=== PATIENT | female | born 1950 | race Caucasian/White ===

== ENCOUNTER 2018-11-01 17:56 | Emergency (ER) | payer MEDICARE, OTHER ==
[~2018-11-01] VITALS: Ht 154.9 cm; Wt 117.9 kg
[~2018-11-01 17:56] MED LIST: ANALPRAM HC 2.530 GM TOP; ASPIRIN LOW-STR81 MG PO; AZOR 5-40 MG T1 EACH PO; CETIRIZINE HCL10 MG PO; CLINDAMYCIN HC150 MG PO; DIGOXIN125 MCG PO; ELIQUIS PO; ESCITALOPRAM OX20 MG PO; FAMOTIDINE40 MG PO; FENOFIBRATE160 MG PO; FENOFIBRATE54 MG PO; HYDROCHLOROTHIA25 MG PO; LEVOTHYROXINE112 MCG PO; LOSARTAN POTAS100 MG PO; METFORMIN HCL500 M1 PO; METOPROLOL TART25 MG PO; NEXIUM40 MG PO; NITROGLYCERIN0.4 MG SL; NO PO; OMEPRAZOLE40 MG PO; PRAVASTATIN SOD40 MG PO; TRICOR145 MG PO; ULTRAM 50MG50 MG PO; VASCULERA PO; VASCULERA630 MG PO; Z.0.BENAZEPRIL HCL20 PO; Z.0.LEVOTHYROXINE100; Z.0.LEXAPRO20 MG PO; Z.0.METOPROLOL TART5 PO; Z.0.SIMVASTATIN40 MG PO; Z.1.LEVOTHYROXINE100 PO; ZYRTEC10 MG PO
--- OUTSIDE RECORDS SUMMARY | 2018-11-01 18:01 | XMS REPORT ---
Author Author [facility] Address Unknown Phone Unavailable Care Team Providers Care Rn Field Name Role Phone Michelle LUNSFORD Unavailable Unavailable Problems This patient has no known problems. Allergies, Adverse Reactions, Alerts This patient has no known allergies or adverse reactions. Medications This patient has no known medications. Results Test Description Test Time Test Comments Text Results Atomic Results Result Comments KNEE RIGHT THREE VIEWS [place] [address] Patient Name: MAHI CUEVAS MR #: [id number] : 1950 Age/Sex: 67/F Req #: [id number] [facility] Physician: Ordered by: JEFFREY LUNSFORD MD Report #: [id number] Location: ER Room/Bed: Procedure: [id number] DX/KNEE RIGHT THREE VIEWS Exam Date: 09/10/17 Exam Time: 1500 REPORT STATUS: Signed PROCEDURE: X-RAY RIGHT KNEE, THREE OR MORE VIEWS COMPARISON: None. INDICATIONS: FALL FINDINGS: The bones are well- mineralized. There are no fractures, subluxations, lytic or blastic lesions. There is no evidence of a joint effusion. Mild degenerative changes in the medial and patellofemoral compartments. CONCLUSION: Mild degenerative changes in the right knee especially the medial compartment. No acute abnormalities. Dictated by: Nile Paul M.D. on 09/10/2017 at 15:27 Electronically approved by: Nile Paul M.D. on 09/10/2017 at 15:27 Dictated By: NILE PAUL MD 152 Transcribed By: MIGNON on 09/10/171526 COPY TO: JEFFREY LUNSFORD MD
--- OUTSIDE RECORDS SUMMARY | 2018-11-01 18:01 | XMS REPORT | Continuity of Care Document ---
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 05/28/2012 [facility] Medications Medication Details Route Status Patient Instructions Ordering Provider Order Date Source Allergies, Adverse Reactions, Alerts Substance Category Reaction Severity Reaction type Status Date Reported Comments Source Immunizations Immunization Date Given Site Status Last Updated Comments Source Results Order Name Results Value Reference Range Date Interpretation Comments Source Breast Limited Uni US Breast Limited Uni US LIMITED ULTRASOUND OF RIGHT BREAST: 11/27/2017 CLINICAL: Right Breast Asymmetry/R92.8 Other Abnormal And Inconclusive Findings On Diagnostic Imaging Of Breast. COMPARISON:Comparison is made to exams dated: 11/27/2017 mammogram, 11/06/2017 mammogram, 04/02/2016 mammogram, 08/28/2014 mammogram, 08/24/2013 mammogram, and 07/27/2013 mammogram - [facility]. TECHNIQUE: Color flow and real-time ultrasound of the right breast were performed on the areas of interest. FINDINGS: No abnormalities were seen sonographically in the right breast. A ridge of fibroglandular tissue is seen in the area of mammographic asymmetry. IMPRESSION: BENIGN RECOMMENDATION:There is no sonographic evidence of malignancy. A 1 year screening mammogram is recommended.(11/28/2018) This exam was interpreted at [id number] for Ricardo. Professional services are provided by the [facility]. Ron Winchester M.D., cm/taina:11/27/2017 15:34:13 General Contractor(s): Nayeli Wylie [facility] letter sent: BI-RADS 1/2 Ultrasound BI-RADS: 2 Benign 11/27/2017 - - Read by: Negro Rivera MD Dictated Date/time: 11/27/17 15:34 Electronically Signed by: Negro Rivera MD 11/27/17 15:34 FINAL REPORT [facility] Silva Breast Mammo Diag UNI incl CAD MA Breast Mammo Diag UNI incl CAD MA UNILATERAL RIGHT DIGITAL DIAGNOSTIC MAMMOGRAM WITH CAD: 11/27/2017 CLINICAL: Mammographic Abnormality/Mammographic Abnormality. Current study was evaluated with a Computer Aided Detection (CAD) system. COMPARISON:Comparison is made to exams dated: 11/06/2017 mammogram, 04/02/2016 mammogram, 08/28/2014 mammogram, 08/24/2013 mammogram, 07/27/2013 mammogram, and 06/25/2012 mammogram - [facility]. TECHNIQUE: Mammographic views were obtained using digital acquisition. Current study was also evaluated with a Computer Aided Detection (CAD) system. FINDINGS: There are scattered fibroglandular densities in right breast. There is an asymmetry in the right breast middle depth superior region seen on the mediolateral oblique view only 12.5 cm from the nipple. This finding becomes less prominent on spot images and may represent overlapping tissue. No other significant masses or calcifications are seen in the breast. IMPRESSION: INCOMPLETE: NEEDS ADDITIONAL IMAGING EVALUATION RECOMMENDATION:The asymmetry in the right breast is indeterminate. An ultrasound is recommended. This exam was interpreted at [id number] for GARLAND Silva. Professional services are provided by the [facility]. Ron Winchester M.D. cm/penrad:11/27/2017 14:27:35 General Contractor(s): Renee Santos RT(R)(M), [facility] Mammogram BI-RADS: 0 Indeterminate 11/27/2017 - - Read by: Negro Rivera MD Dictated Date/time: 11/27/17 14:27 Electronically Signed by: Negro Rivera MD 11/27/17 14:27 FINAL REPORT GARLAND Silva Digital Mammo Screening [place] MA Digital Mammo Screening [place] MA - DIGITAL MAMMO SCREENING [place] MA BILATERAL DIGITAL SCREENING MAMMOGRAM WITH CAD: 04/02/2016 CLINICAL: Routine. Current study was evaluated with a Computer Aided Detection (CAD) system. Comparison is made to exams dated: 08/28/2014 mammogram, 08/24/2013 mammogram, 07/27/2013 mammogram, 06/25/2012 mammogram, 06/22/2011 mammogram and 05/24/2011 mammogram - [facility]. There are scattered fibroglandular densities in both breasts. There are benign scattered calcifications in both breasts. No significant masses, calcifications, or other findings are seen in either breast. There has been no significant interval change. IMPRESSION: BENIGN There is no mammographic evidence of malignancy. A 1 year screening mammogram is recommended. Ron Winchester M.D. /penrad:04/03/2016 09:48:06 General Contractor: Deya Rader RT(R)(M), [facility] This exam was dictated and interpreted by [id number] for MATIAS Lee 15. letter sent: Normal exam Mammogram BI-RADS: 2 Benign 04/02/2016 - - Read by: Negro Rivera MD Dictated Date/time: 04/03/16 09:48 Electronically Signed by: Negro Rivera MD 04/03/16 09:48 [facility] Mammo Screening [place] MA Digital Mammo Screening [place] MA - DIGITAL MAMMO SCREENING [place] MA BILATERAL DIGITAL SCREENING MAMMOGRAM WITH CAD: 08/28/2014 CLINICAL: V76.10 Breast Screening, Unspecified. Current study was evaluated with a Computer Aided Detection (CAD) system. Comparison is made to exams dated: 11/04/2006 mammogram - [facility], 01/05/2009 mammogram - [facility], 03/02/2010 mammogram, 05/24/2011 mammogram and 07/27/2013 mammogram - [facility]. There are scattered fibroglandular densities in both breasts. No significant masses, calcifications, or other findings are seen in either breast. There has been no significant interval change. IMPRESSION: NEGATIVE There is no mammographic evidence of malignancy. A screening mammogram in one year is recommended. Dr. Jyothi Brown D.O. /penrad:08/30/2014 11:06:01 General Contractor: Jenifer Esqueda RT(R)(M), [facility] This exam was dictated and interpreted by [id number] for GARLAND Jefferson. letter sent: Normal exam Mammogram BI-RADS: 1 Negative 08/28/2014 - - Read by: Jyothi Brown DO Dictated Date/time: 08/30/14 11:06 Electronically Signed by: Jyothi Brown DO 08/30/14 11:06 FINAL REPORT GAR[facility] Silva Digital Mammo DX Uni MA Digital Mammo DX Uni MA - DIGITAL MAMMO DX UNI MA/L UNILATERAL LEFT DIGITAL DIAGNOSTIC MAMMOGRAM: 08/24/2013 CLINICAL: Mammographic Abnormality. Comparison is made to exams dated: 07/27/2013 mammogram, 06/25/2012 mammogram and 05/24/2011 mammogram - [facility]. There are scattered fibroglandular elements in the left breast that could obscure a lesion on mammography. Additional imaging was obtained. Focal area in question in the left breast in prior mammography is not reproduced and presumably represents superimposed breast tissue. No significant masses, calcifications, or other findings are seen in the breast. IMPRESSION: NEGATIVE There is no mammographic evidence of malignancy. Return to annual mammogram screening schedule is recommended. SUMMARY: I notified the patient of the results and their significance at the completion of today's examination. Dr. Jyothi Brown D.O. ht/penrad:08/24/2013 14:11:41 General Contractor: Gris BARTHOLOMEW(R)(M), [facility] This exam was dictated and interpreted by [id number] for GARLAND Silva. letter sent: Normal exam Mammogram BI-RADS: 1 Negative 08/24/2013 - - Read by: Jyothi Brown Dictated Date/time: 08/24/13 14:11 Electronically Signed by: Jyothi Brown , 08/24/13 14:11 FINAL REPORT G[facility] Hortona Digital Mammo Screening [place] MA Digital Mammo Screening [place] MA - DIGITAL MAMMO SCREENING [place] MA BILATERAL DIGITAL SCREENING MAMMOGRAM WITH CAD: 07/27/2013 CLINICAL: Routine. Current study was evaluated with a Computer Aided Detection (CAD) system. Comparison is made to exams dated: 06/25/2012 mammogram, 06/22/2011 mammogram, 05/24/2011 mammogram, 03/02/2010 mammogram - [facility] and 01/05/2009 mammogram - [facility]. There are scattered fibroglandular elements in both breasts that could obscure a lesion on mammography. There is a new architectural distortion in the left breast anterior depth central to the nipple seen on the craniocaudal view only. No other significant masses, calcifications, or other findings are seen in either breast. IMPRESSION: INCOMPLETE: NEEDS ADDITIONAL IMAGING EVALUATION The new architectural distortion in the left breast is indeterminate. Spot compression and lateral views as well as a possible ultrasound are recommended. Lucien Crook M.D. 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
--- OUTSIDE RECORDS SUMMARY | 2018-11-01 18:01 | XMS REPORT | Summary of Care ---
Author Author [facility] [place] Organization [facility] [place] Address Unknown Phone Unavailable Encounter HQ Encntr_alimary(FIN) [id number] Date(s): 04/02/16 - 04/02/16 [facility] [place] [address] [place] [address]- [facility] [phone] Discharge Disposition: Home Attending Physician: Yan Justin MD Vital Signs No data available for this section Problem List No data available for this section Allergies, Adverse Reactions, Alerts No data available for this section Medications No data available for this section Results No data available for this section Immunizations No data available for this section Procedures No data available for this section Social History No data available for this section Assessment and Plan No data available for this section
--- OUTSIDE RECORDS SUMMARY | 2018-11-01 18:01 | XMS REPORT | Summary of Care ---
Author Organization Unknown Address Unknown Phone Unavailable Encounter HQ Daor_yudy(NERY) [id number] Date(s): 08/28/14 - 08/28/14 [facility] Outpatient Imaging - [address] [address]- [place] Discharge Disposition: Home Physician Attending: Yan Justin MD Reason for Visit V76.12 - SCREEN MAMMOGRA Problem List No data available for this section Allergies, Adverse Reactions, Alerts No data available for this section Medications No data available for this section Medications Administered During Your Visit No data available for this section Immunizations No data available for this section
== END 2018-11-01 18:29 | disposition home or self-care (01) ==
LOC: ER 17:56
DX: M79.89 Other specified soft tissue disorders (principal); W49.04XA Ring or other jewelry causing external constriction, initial encounter; I10 Essential (primary) hypertension; E11.9 Type 2 diabetes mellitus without complications; I48.91 Unspecified atrial fibrillation; E03.9 Hypothyroidism, unspecified; Z86.73 Personal history of transient ischemic attack (TIA), and cerebral infarction without residual deficits
CPT/HCPCS: 99283

== ENCOUNTER 2018-12-23 10:27 | Emergency (ER) | payer MEDICARE, OTHER ==
[~2018-12-23] VITALS: Ht 154.9 cm; Wt 95.3 kg
[2018-12-23] MEDS ORDERED: ONDANSETRON HCL INJ 2MG/ML 2ML 2 MG/ML VIAL IV STA (11:00)
[2018-12-23 11:39] LABS: BASOPHILS % 0.3 % (0.0-1.0); EOSINOPHILS # (AUTO) 0.1 (0.0-0.4); EOSINOPHILS % 0.8 % (0.0-6.0); HEMATOCRIT 47.5 % (34.2-44.1); HEMOGLOBIN 15.3 g/dL (12.0-16.0); LYMPHOCYTES # (AUTO) 2.8 (1.0-3.2); LYMPHOCYTES % 23.9 % (18.0-39.1); MEAN CORPUSCULAR HEMOGLOBIN 30.7 pg (28-32); MEAN CORPUSCULAR HGB CONC 32.2 g/dL (31-35); MEAN CORPUSCULAR VOLUME 95.2 fL (81-99); MONOCYTES # (AUTO) 0.7 (0.2-0.8); MONOCYTES % 6.4 % (4.4-11.3); NEUTROPHILS # (AUTO) 7.9 (2.1-6.9); NEUTROPHILS % 68.3 % (38.7-80.0); PLATELET COUNT 300 x10e3/uL (140-360); RED BLOOD COUNT 4.99 x10e6/uL (3.6-5.1); RED CELL DISTRIBUTION WIDTH 13.5 % (11.7-14.4)
[2018-12-23 11:57] LABS: INR 1.19; PARTIAL THROMBOPLASTIN TIME 37.7 seconds (23.8-35.5); PROTHROMBIN TIME 16.1 seconds (11.9-14.5)
[2018-12-23 12:01] LABS: ALBUMIN 3.9 g/dL (3.5-5.0); ANION GAP 16.9 mmol/L (8-16); CALCIUM 10.4 mg/dL (8.4-10.2); CREATININE, SERUM 1.28 mg/dL (0.57-1.11); MAGNESIUM 2.7 MG/DL (1.3-2.1); POTASSIUM 4.9 mmol/L (3.5-5.1)
[2018-12-23 12:07] LABS: CREATINE KINASE MB 0.8 ng/mL (0-5.0)
--- NOTE | 2018-12-23 12:27 | Diagnostic Imaging Report ---
EXAM: Gallbladder Ultrasound INDICATION: Right upper quadrant pain. Abdominal pain. COMPARISON: None. TECHNIQUE: Transverse and longitudinal images of the gallbladder were obtained. FINDINGS: Liver: Normal in size measuring 15.2 cm. There is increased echogenicity in the liver which could be due to fatty infiltration. Gallbladder: Stones/Sludge: Sludge is seen in the lumen of the gallbladder Wall: 0.2 cm Appearance: No wall thickening, pericholecystic fluid or hydrops. Sonographic Kidd's Sign: Negative Bile Ducts: Intrahepatic Ducts: No dilatation Extrahepatic Ducts: Common bile duct measures 0.3 cm, no dilatation The main portal vein is normal in appearance measuring 0.6 cm. The right kidney is normal in appearance measuring 10.4 cm. The pancreas is not well seen. The abdominal aorta is normal in appearance. The inferior vena cava is normal in appearance. Free Fluid: No ascites or pleural effusion IMPRESSION: Sludge in the lumen of the gallbladder. No ductal dilatation. Pancreas not well seen due to overlying bowel gas. Increased hepatic echogenicity could be due to fatty infiltration. Signed by: Dr. Fei Gusman M.D. on 12/23/2018 12:24 PM
[2018-12-23] MEDS ORDERED: SODIUM CHLORIDE 0.9% 1000ML 1,000 ML ONE (13:26)
[2018-12-23] MEDS ORDERED: SODIUM CHLORIDE 0.9% 1000ML 1,000 ML IV SCH (14:00)
[2018-12-23] MEDS ORDERED: ACETAMINOPHEN 325 MG TAB PO ONE (14:00)
--- NOTE | 2018-12-23 15:16 | Diagnostic Imaging Report ---
EXAMINATION: CHEST SINGLE (NOT PORTABLE) INDICATION: Nausea. Vomiting. Dizziness ^ERMD ORDER ^[id number] ^1210 ^Y COMPARISON: 05/25/2015 FINDINGS: TUBES and LINES: Left anterior chest single lead cardiac device LUNGS: Lungs are well inflated. Chronic appearing changes in the lungs with scattered calcifications which could be pleural /fibrocalcific in origin. There is no evidence of pneumonia or pulmonary edema. PLEURA: No pleural effusion or pneumothorax. HEART AND MEDIASTINUM: The cardiomediastinal silhouette is unremarkable. BONES AND SOFT TISSUES: No acute osseous lesion. Soft tissues are unremarkable. UPPER ABDOMEN: No free air under the diaphragm. IMPRESSION: No acute thoracic abnormality. Chronic appearing changes in the lungs with scattered calcifications which could be pleural/ fibrocalcific in origin. Signed by: Dr. Fei Gusman M.D. on 12/23/2018 3:13 PM
--- NOTE | 2018-12-23 16:59 | NUR ---
Bladder scan completed at this time. Current volume 54ml. MELQUIADES Emmanuel notified.
[2018-12-23 17:18] LABS: BILIRUBIN,URINE NEGATIVE (NEGATIVE); CLARITY,URINE SL CLOUDY (CLEAR); COLOR,URINE YELLOW (YELLOW); KETONES,URINE NEGATIVE (NEGATIVE); LEUKOCYTE ESTERASE ,URINE 1+ (NEGATIVE); NITRITE,URINE POSITIVE (NEGATIVE); PROTEIN,URINE DIPSTICK NEGATIVE (NEGATIVE); URINE UROBILINOGEN 0.2 mg/dL (0.2 - 1)
[2018-12-23 17:25] LABS: EPITHELIAL CELLS,URINE MODERATE /LPF
[2018-12-23 17:26] LABS: BACTERIA,URINE MANY /HPF; WBC,URINE (MAN) >50 /HPF (0-5)
[2018-12-23 17:28] LABS: HYALINE CASTS 0-1 (0-1)
[2018-12-23 17:36] VITALS: BP 95/54
[2018-12-23] MEDS ORDERED: BACTRIM DS TAB1 EACH PO (17:36)
[2018-12-23] MEDS ORDERED: ZOFRAN4 MG SL (17:41)
== END 2018-12-23 21:04 | disposition home or self-care (01) ==
LOC: ER 10:27
DX: R11.2 Nausea with vomiting, unspecified (principal); R19.7 Diarrhea, unspecified; N30.91 Cystitis, unspecified with hematuria
CPT/HCPCS: 36415; 71045; 76705; 80053; 81001; 82150; 82542; 82550; 82553; 82948; 83690; 83735; 83880; 84484; 85025; 85610; 85730; 93005; 99284; J2405; J7030

== ENCOUNTER 2019-03-25 11:57 | Emergency (ER) | payer MEDICARE, OTHER ==
[~2019-03-25] VITALS: Ht 154.9 cm; Wt 95.3 kg
[~2019-03-25 11:57] MED LIST changes: +BACTRIM DS TAB1 EACH PO; +ZOFRAN4 MG SL
--- NOTE | 2019-03-25 12:48 | NUR ---
UA STERILE IN/OUT CATH AND CLEAN DRY DIAPER IN PLACE. PT NON COOPERATIVE AND TOLERATED POORLY
--- NOTE | 2019-03-25 13:39 | Diagnostic Imaging Report ---
EXAMINATION: CHEST SINGLE (NOT PORTABLE) INDICATION: Status post fall. COMPARISON: Chest radiograph 12/23/2018 FINDINGS: Exam is somewhat limited by soft tissue attenuation. TUBES and LINES: Left-sided single lead pacemaker with tip overlying the right ventricle. LUNGS: Lungs are not well inflated. There is no evidence of pneumonia or pulmonary edema. PLEURA: No pleural effusion or pneumothorax. Bilateral calcifications, likely pleural are unchanged. HEART AND MEDIASTINUM: The cardiomediastinal silhouette is unremarkable. There are atherosclerotic calcifications within the aorta. BONES AND SOFT TISSUES: No acute osseous abnormality. UPPER ABDOMEN: No free air under the diaphragm. IMPRESSION: No acute radiographic abnormality. Signed by: Dr. Cordell Stovall MD on 03/25/2019 1:35 PM
--- NOTE | 2019-03-25 13:44 | Diagnostic Imaging Report ---
Exam: Pelvic radiograph-2 views; right knee radiographs-3 views History: Status post fall. Comparison: None. Findings: Pelvis: No evidence of acute fracture, malalignment, or soft tissue mildly. Bowel gas obscures visualization of the sacrum. There are mild degenerative changes in the bilateral hips and pubic symphysis. Degenerative changes of the lower lumbar spine. There is mild left lateral listhesis of L3 on L4. Right knee: No evidence of acute fracture, malalignment, or soft tissue mildly. No suprapatellar joint effusion. There are mild medial compartment degenerative changes with joint space narrowing and bony osteophyte formation. Impression: No acute radiographic abnormality in the pelvis or right knee. Signed by: Dr. Cordell Stovall MD on 03/25/2019 1:40 PM
[2019-03-25 14:04] LABS: BILIRUBIN,URINE NEGATIVE (NEGATIVE); CLARITY,URINE SL CLOUDY (CLEAR); COLOR,URINE YELLOW (YELLOW); KETONES,URINE NEGATIVE (NEGATIVE); LEUKOCYTE ESTERASE ,URINE TRACE (NEGATIVE); NITRITE,URINE NEGATIVE (NEGATIVE); PROTEIN,URINE DIPSTICK NEGATIVE (NEGATIVE); URINE UROBILINOGEN 0.2 mg/dL (0.2 - 1)
[2019-03-25 14:12] LABS: RBC,URINE 0-5 /HPF (0-5)
[2019-03-25 14:13] LABS: AMORPHOUS SEDIMENT,URINE MODERATE (FEW)
[2019-03-25 15:23] LABS: BASOPHILS % 0.2 % (0.0-1.0); EOSINOPHILS # (AUTO) 0.1 (0.0-0.4); EOSINOPHILS % 0.4 % (0.0-6.0); HEMATOCRIT 42.3 % (34.2-44.1); HEMOGLOBIN 13.9 g/dL (12.0-16.0); LYMPHOCYTES # (AUTO) 2.4 (1.0-3.2); LYMPHOCYTES % 19.4 % (18.0-39.1); MEAN CORPUSCULAR HGB CONC 32.9 g/dL (31-35); MEAN CORPUSCULAR VOLUME 94.2 fL (81-99); MONOCYTES # (AUTO) 0.8 (0.2-0.8); MONOCYTES % 6.6 % (4.4-11.3); PLATELET COUNT 231 x10e3/uL (140-360); RED BLOOD COUNT 4.49 x10e6/uL (3.6-5.1)
[2019-03-25 15:37] LABS: INR 1.21; PROTHROMBIN TIME 15.9 seconds (11.9-14.5)
[2019-03-25 15:38] LABS: PARTIAL THROMBOPLASTIN TIME 35.2 seconds (23.8-35.5)
[2019-03-25 15:47] LABS: ALBUMIN 4.1 g/dL (3.5-5.0); ALBUMIN/GLOBULIN RATIO 1.1 (0.8-2.0); ANION GAP 16.1 mmol/L (8-16); CALCIUM 10.6 mg/dL (8.4-10.2); CREATININE, SERUM 1.29 mg/dL (0.57-1.11); POTASSIUM 4.1 mmol/L (3.5-5.1)
[2019-03-25 16:17] LABS: CREATINE KINASE MB 1.4 ng/mL (0-5.0)
--- NOTE | 2019-03-25 19:25 | NUR ---
REPORT CALLED TO [facility] FOR THIS PATIENT TO GO TO [facility] FOR REHAB Addendum: 03/25/19 at 1937 by AMANDA [phone]
--- NOTE | 2019-03-25 19:32 | NUR ---
[facility] WAS CALLED; SPOKE WITH [facility] FOR TRANSPORT
== END 2019-03-25 20:20 ==
LOC: ER 12:00
DX: S80.01XA Contusion of right knee, initial encounter (principal); W18.2XXA Fall in (into) shower or empty bathtub, initial encounter; Y93.E1 Activity, personal bathing and showering; Y92.002 Bathroom of unspecified non-institutional (private) residence as the place of occurrence of the external cause; G20 Parkinson's disease; I69.898 Other sequelae of other cerebrovascular disease; I10 Essential (primary) hypertension; E11.9 Type 2 diabetes mellitus without complications; I48.91 Unspecified atrial fibrillation; G40.909 Epilepsy, unspecified, not intractable, without status epilepticus; F41.9 Anxiety disorder, unspecified; K21.9 Gastro-esophageal reflux disease without esophagitis; E78.5 Hyperlipidemia, unspecified
CPT/HCPCS: 36415; 71045; 72170; 80053; 81001; 82550; 82553; 82948; 84484; 85025; 85610; 85730; 93005; 99284